=== PATIENT | male | born 1985 | race Two or more races ===

== ENCOUNTER 2016-10-11 15:57 | Emergency (ER) | payer BC ==
[~2016-10-11] VITALS: Ht 162.6 cm; Wt 72.6 kg
[2016-10-11] MEDS ORDERED: IV NORMAL SALINE 1000ML BAG 1,000 ML IV ONE (16:30)
[2016-10-11] MEDS ORDERED: TAMSULOSIN 0.4 MG CAP.ER.24H. PO ONE (16:30)
[2016-10-11] MEDS ORDERED: ONDANSETRON PF 4 MG/2 ML VIAL. IV ONE (16:30)
[2016-10-11] MEDS ORDERED: KETOROLAC TROMETHAMINE 30 MG/ML INJ. IV ONE (16:30)
[2016-10-11 16:45] LABS: BASO # 0.1 x10^3/uL (0.0-0.2); BASO % 1 % (0-3); EOS % 3 % (0-3); HEMATOCRIT 40.7 % (39.0-53.0); HEMOGLOBIN 13.8 g/dL (13.0-17.5); LYMPH # 2.4 x10^3/uL (1.0-4.8); LYMPH % 28 % (24-48); MEAN CORPUSCULAR HEMOGLOBIN 30 pg (25-35); MEAN CORPUSCULAR HGB CONC 34 g/dL (31-37); MEAN CORPUSCULAR VOLUME 88 fL (79-100); MONO % 10 % (0-9); NEUT % 59 % (31-73); PLATELET COUNT 118 x10^3/uL (140-400); RED BLOOD COUNT 4.66 x10^6/uL (4.30-5.70); RED CELL DISTRIBUTION WIDTH 13.6 % (11.5-14.5); WHITE BLOOD COUNT 8.6 x10^3/uL (4.0-11.0)
[2016-10-11 16:47] LABS: BILIRUBIN,URINE NEGATIVE (NEG); GLUCOSE,URINE 250 mg/dL (NEG); NITRITE,URINE NEGATIVE (NEG); PH,URINE 5.5; PROTEIN,URINE NEGATIVE (NEG-TRACE); UROBILINOGEN,URINE 0.2 mg/dL (0.2 mg/dL)
[2016-10-11 16:53] LABS: BACTERIA,URINE 0 /HPF (0-FEW); RBC,URINE TNTC /HPF (0-2); WBC,URINE 0 /HPF (0-4)
--- NOTE | 2016-10-11 16:59 | RAD ---
INDICATION: Flank pain COMPARISON: 02/06/2015 TECHNIQUE: Axial CT images were obtained through the abdomen and pelvis without intravenous contrast. Coronal reformations were processed. FINDINGS: Abdomen: Chest Base: Partially imaged without gross abnormality. Vessels: No abdominal aortic aneurysm. Liver/Biliary: No intrahepatic biliary duct dilation. Pancreas: No peripancreatic edema. Spleen: Normal. Kidneys/Adrenal: 6 mm stone at the right renal pelvis adjacent to the UPJ. Low-attenuation lesion right kidney measuring approximately 13 mm. There is an additional low-attenuation lesion measuring approximately 13 mm. GI: Appendix not well seen. No dilated loops of bowel to suggest obstruction. Pelvis: Bladder: Largely decompressed IMPRESSION: 1. There is a stone within the right renal pelvis just superior to the right UPJ. No definite radiopaque obstructive ureter stone at this time. 2. No evidence of bowel obstruction. 3. There are couple of low density right renal lesions. Given the patient's age these would most commonly be from benign causes such as cyst but if more complete characterization is desired nonemergent ultrasound can further evaluate. PQRS Compliance Statement: One or more of the following individualized dose reduction techniques were utilized for this examination: 1. Automated exposure control 2. Adjustment of the mA and/or kV according to patient size 3. Use of iterative reconstruction technique
[2016-10-11 17:04] LABS: CALCIUM 8.9 mg/dL (8.5-10.1); CREATININE 0.7 mg/dL (0.7-1.3); GFR 130.7; POTASSIUM 4.2 mmol/L (3.5-5.1)
[2016-10-11 17:09] LABS: PLT ESTIMATE ADEQUATE (ADEQUATE)
[2016-10-11 17:10] LABS: ALBUMIN 3.7 g/dL (3.4-5.0); TOTAL BILIRUBIN 0.4 mg/dL (0.2-1.0); TOTAL PROTEIN 7.4 g/dL (6.4-8.2)
[2016-10-11 17:30] VITALS: BP 110/73
[2016-10-11] MEDS ORDERED: CIPR500T94 PO (17:50)
[2016-10-11] MEDS ORDERED: OXYC-323 PO (17:50)
[2016-10-11] MEDS ORDERED: TAMS0.4C97 PO (17:50)
--- NOTE | 2016-10-11 17:50 | PHYS DOC ---
Past Medical History Past Medical History: Diabetes-Type II, Kidney Stone Past Surgical History: Appendectomy, Other Additional Past Surgical Histo: kidney stent,LITHOTRIPSY MULT,KIDNEY STONE REMOVAL MULT,PARATHYROID GLAND Alcohol Use: None Drug Use: None Adult General Chief Complaint Chief Complaint: BLOOD IN URINE HPI HPI Patient is a 31 year old male with history of diabetes type 2 and kidney stones who presents today with mild bilateral flank pain intermittently for 2 weeks worse since last night. Patient is also complaining of hematuria since last night. Patient denies any fever nausea vomiting. Review of Systems Review of Systems Constitutional: Denies fever or chills [] Eyes: Denies change in visual acuity, redness, or eye pain [] HENT: Denies nasal congestion or sore throat [] Respiratory: Denies cough or shortness of breath [] Cardiovascular: No additional information not addressed in HPI [] GI: Denies abdominal pain, nausea, vomiting, bloody stools or diarrhea [] : Bilateral flank pain Musculoskeletal: Denies back pain or joint pain [] Integument: Denies rash or skin lesions [] Neurologic: Denies headache, focal weakness or sensory changes [] Endocrine: Denies polyuria or polydipsia [] Current Medications Current Medications Current Medications Medications (Trade) Dose Ordered Sig/Kari Start Time Stop Time Status Last Admin Dose Admin Ketorolac Tromethamine (Toradol) 30 mg 1X ONCE 10/11/16 16:30 10/11/16 16:31 DC 10/11/16 16:47 30 MG Ondansetron HCl (Zofran) 4 mg 1X ONCE 10/11/16 16:30 10/11/16 16:31 DC 10/11/16 16:43 4 MG Sodium Chloride 1,000 ml @ 1,000 mls/hr 1X ONCE 10/11/16 16:30 10/11/16 17:29 DC 10/11/16 16:47 1,000 MLS/HR Tamsulosin HCl (Flomax) 0.4 mg 1X ONCE 10/11/16 16:30 10/11/16 16:31 DC 10/11/16 16:44 0.4 MG Allergies Allergies Allergies Coded Allergies Type Severity Reaction Last Updated Verified No Known Drug Allergies 02/06/15 No Physical Exam Physical Exam Constitutional: Well developed, well nourished, no acute distress, non-toxic appearance. [] HENT: Normocephalic, atraumatic, bilateral external ears normal, oropharynx moist, no oral exudates, nose normal. [] Eyes: PERRLA, EOMI, conjunctiva normal, no discharge. [] Neck: Normal range of motion, no tenderness, supple, no stridor. [] Cardiovascular:Heart rate regular rhythm, no murmur [] Lungs & Thorax: Bilateral breath sounds clear to auscultation [] Abdomen: Bowel sounds normal, soft, no tenderness, no masses, no pulsatile masses. [] Skin: Warm, dry, no erythema, no rash. [] Back: No tenderness, mild right CVA tenderness. [] Extremities: No tenderness, no cyanosis, no clubbing, ROM intact, no edema. [] Neurologic: Alert and oriented X 3, normal motor function, normal sensory function, no focal deficits noted. [] Psychologic: Affect normal, judgement normal, mood normal. [] Current Patient Data Vital Signs Vital Signs Date Time Temp Pulse Resp B/P (MAP) Pulse Ox O2 Delivery O2 Flow Rate FiO2 10/11/16 16:08 98.5 85 16 119/73 (88) 97 Room Air 98.5 Lab Values Laboratory Tests Test 10/11/16 16:15 10/11/16 16:35 Urine Collection Type Unknown Urine Color Yellow Urine Clarity Clear Urine pH 5.5 Urine Specific [place] 1.025 Urine Protein Negative mg/dL (NEG-TRACE) Urine Glucose (UA) 250 mg/dL (NEG) Urine Ketones (Stick) Negative mg/dL (NEG) Urine Blood Large (NEG) Urine Nitrite Negative (NEG) Urine Bilirubin Negative (NEG) Urine Urobilinogen Dipstick 0.2 mg/dL (0.2 mg/dL) Urine Leukocyte Esterase Negative (NEG) Urine RBC Tntc /HPF (0-2) Urine WBC 0 /HPF (0-4) Urine Bacteria 0 /HPF (0-FEW) Urine Mucus Mod /LPF White Blood Count 8.6 x10^3/uL (4.0-11.0) Red Blood Count 4.66 x10^6/uL (4.30-5.70) Hemoglobin 13.8 g/dL (13.0-17.5) Hematocrit 40.7 % (39.0-53.0) Mean Corpuscular Volume 88 fL (79-100) Mean Corpuscular Hemoglobin 30 pg (25-35) Mean Corpuscular Hemoglobin Concent 34 g/dL (31-37) Red Cell Distribution Width 13.6 % (11.5-14.5) Platelet Count 118 x10^3/uL (140-400) L Neutrophils (%) (Auto) 59 % (31-73) Lymphocytes (%) (Auto) 28 % (24-48) Monocytes (%) (Auto) 10 % (0-9) H Eosinophils (%) (Auto) 3 % (0-3) Basophils (%) (Auto) 1 % (0-3) Neutrophils # (Auto) 5.1 x10^3uL (1.8-7.7) Lymphocytes # (Auto) 2.4 x10^3/uL (1.0-4.8) Monocytes # (Auto) 0.9 x10^3/uL (0.0-1.1) Eosinophils # (Auto) 0.2 x10^3/uL (0.0-0.7) Basophils # (Auto) 0.1 x10^3/uL (0.0-0.2) Platelet Estimate Adequate (ADEQUATE) Giant Platelets Present Sodium Level 138 mmol/L (136-145) Potassium Level 4.2 mmol/L (3.5-5.1) Chloride Level 103 mmol/L (98-107) Carbon Dioxide Level 27 mmol/L (21-32) Anion Gap 8 (6-14) Blood Urea Nitrogen 14 mg/dL (8-26) Creatinine 0.7 mg/dL (0.7-1.3) Estimated GFR (Cockcroft-Gault) 130.7 BUN/Creatinine Ratio 20 (6-20) Glucose Level 248 mg/dL (70-99) H Calcium Level 8.9 mg/dL (8.5-10.1) Total Bilirubin 0.4 mg/dL (0.2-1.0) Aspartate Amino Transferase (AST) 75 U/L (15-37) H Alanine Aminotransferase (ALT) 143 U/L (16-63) H Alkaline Phosphatase 122 U/L (46-116) H Total Protein 7.4 g/dL (6.4-8.2) Albumin 3.7 g/dL (3.4-5.0) Albumin/Globulin Ratio 1.0 (1.0-1.7) Lipase 107 U/L (73-393) Laboratory Tests 10/11/16 16:35 Laboratory Tests 10/11/16 16:35 EKG EKG [] Radiology/Procedures Radiology/Procedures [] Course & Med Decision Making Course & Med Decision Making Pertinent Labs and Imaging studies reviewed. (See chart for details) Patient with history of kidney stones who presents today with bilateral flank pain for 2 weeks and hematuria since yesterday. CBC with no acute findings. CMP with glucose of 248, patient has history of diabetes, AST 75, ALT 143, alkaline phosphate 122. Urine negative for infection but noted for large amount of blood. CT of the abdomen and pelvic was noted for a 6 mm stone at the right renal pelvic adjacent to the UPJ. Patient himself is requesting to be discharged. He states he does not want to be transferred to a different hospital considering we don't have a urologist at [facility]. He states he has a urologist at [facility] and he will contact the urologist thing tomorrow morning and set up an appointment. He was discharged with oxycodone, Flomax and Cipro. Dragon Disclaimer Dragon Disclaimer This electronic medical record was generated, in whole or in part, using a voice recognition dictation system. Departure Departure Impression: Primary Impression: Kidney stone Disposition: 01 HOME, SELF-CARE Condition: STABLE Referrals: NO PCP (PCP) Follow-up with your urologist at by calling the office tomorrow morning. Patient Instructions: Kidney Stones Additional Instructions: You were seen in the ED for flank pain. Your CT was noted to have a 6 mm kidney stone in the renal pelvic. You stated you have a urologist at [facility]. Kindly call him tomorrow morning and set up a follow-up appointment. You can return to the ED at any point your symptoms worsen. Scripts Ciprofloxacin Hcl (CIPRO) 500 Mg Tablet 1 TAB PO BID, #14 TAB Prov: ETHAN SINGH APRN 10/11/16 Tamsulosin Hcl (FLOMAX) 0.4 Mg Cap.er.24h 1 CAP PO DAILY, #6 CAP 11 Refills Prov: ETHAN SINGH [employer]G CONTROL OFFICER 10/11/16 Oxycodone/Apap 5-325 (PERCOCET 5-325 MG TABLET) 1 Each Tablet 1-2 TAB PO Q4-6HRS Y for PAIN, #30 TAB Prov: ETHAN SINGH APRN 10/11/16 ETHAN SINGH APRN Oct 11, 2016 17:50
== END 2016-10-11 18:02 | disposition home or self-care (01) ==
LOC: ER 15:57
DX: N20.0 Calculus of kidney (principal); E11.9 Type 2 diabetes mellitus without complications; Z87.442 Personal history of urinary calculi; Z90.49 Acquired absence of other specified parts of digestive tract
CPT/HCPCS: 36415; 74176; 80053; 81001; 83690; 85007; 85027; 96361; 96374; 96375; 99285; J1885; J2405; J7030